=== PATIENT | female | born 1980 | race Caucasian/White ===

== ENCOUNTER 2024-02-19 09:18 | Day surgery (SDC) | payer BC, SELFPAY ==
--- NOTE | 2024-02-17 12:48 | PCM.HP.BLA ---
History and Physical Date of Admission: 02/19/24 HPI: The patient is a 43 year old female presenting for pre-operative visit. She is scheduled for hysteroscopy dilation and curettage, for hysteroscopy dilation and curettage with polyp resection on AUB and endometrial polyps. Procedure discussed along with risks, benefits and complications. Other alternatives discussed for management. Consent form signed? Yes. PAST MEDICAL HISTORYExpand by Default PAST MEDICAL HISTORY No date: NEGATIVE MEDICAL HISTORY PAST SURGICAL HISTORY PAST SURGICAL HISTORY No date: NONE CURRENT MEDICATIONS Current Outpatient Medications Medication Sig Dispense Refill ? multivit-minerals/folic acid (WOMEN'S MULTIVITAMIN GUMMIES ORAL) Take by mouth. No current facility-administered medications for this visit. ALLERGIES: Bee Pollen PERSONAL HISTORY: SOCIAL HISTORY Social History Tobacco Use ? Smoking status: Former ? Smokeless tobacco: Never ? Tobacco comments: Quit 2005 Vaping Use ? Vaping status: Never Used Substance Use Topics ? Alcohol use: Not Currently ? Drug use: Never FAMILY HISTORY: FAMILY HISTORY FAMILY HISTORY Problem Relation Age of Onset ? Diabetes Mother ? Cancer Father Skin ? Heart Father Low pulse ? Hypertension Father ? Parkinson?s Disease Father ? other (covid pneumonia) Father ? Diabetes Maternal Grandmother ? Cancer Maternal Grandfather Leukemia ? Alzheimer's Disease Paternal Grandmother ? Alzheimer's Disease Paternal Grandfather REVIEW OF SYMPTOMS: GENERAL: denies fevers or chills ENDOCRINOLOGY: has not been on steroids Cardiology : denies palpitations or chest pain Respiratory: denies SOB or cough Hematology: denies history of prolonged bleeding or easy bruising or VTE Allergy: Denies history of personal or family history of allergy to anesthesia PHYSICAL EXAMINATION: VITALS: Blood pressure 132/88, pulse 71, height 160 cm (5' 3), weight 89.8 kg (198 lb), last menstrual period 01/23/2024, SpO2 99%. GENERAL: The patient is well nourished, well hydrated in no acute distress. , The patient is oriented to time, place, and person. NECK: Supple. No lynphadenopathy, normal thyroid, no thyromegaly. LUNGS: Clear to auscultation bilaterally. no wheezes, rhonchi or rales HEART: Regular rate and rhythm, Normal heart sounds, and No murmurs or gallops pelvic US 01/16/24: Indication Pelvic Pain Impression Anteverted fibroid uterus that measures 98 mm x 54 mm x 56 mm. The largest fibroids are described below. Endometrium measures 13.2 mm on Day 21 of cycle. There is a 12 x 3 x 7 mm hyperechoic area within fundal area which is suggestive of a polyp. Normal endometrial contour. Both ovaries are visualized and appear normal with follicular change. No adnexal masses were observed. There is no free fluid visualized in the peritoneal cavity. IMPRESSION: AUB, endometrial polyps PLAN: The risks/benefits/alternatives and personal involved for the planned hysteroscopy D&C w/ polyp resection were reviewed with the patient. Her questions were answered to her satisfaction and she desires to proceed. Consent was signed. I reviewed with her postop instructions and expectations. I have reviewed and updated past medical and surgical history, medications and allergies Assessment & Plan Assessment/Plan (1) Abnormal uterine bleeding (AUB): (2) Endometrial polyp:
[2024-02-19] VITALS (8 sets, daily range): BP systolic 111–149; BP diastolic 59–85; PULSE 90–99; RESP 16; TEMP 36.2–37.4; O2SAT 98–100; BMI 34.0
[2024-02-19] MEDS: Lactated Ringers 1,000 ML 15 ML IV (10:17)
[2024-02-19] MEDS: Acetaminophen 500 MG Tablet 1000 MG PO (10:22)
[2024-02-19] MEDS: Ketorolac 30 MG/ML Syringe IV (10:22)
[2024-02-19 10:41] LABS: hCG Titer Quant., Serum < 1 mIU/mL (1-3)
[2024-02-19 10:51] LABS: Hematocrit 41.4 % (37-47); Mean Corp Hgb Conc 31.4 g/dL (32-36); Mean Corpuscular Hgb 27.1 pg (27.0-32.0); Mean Corpuscular Volume 86.4 fL (81-99); Mean Platelet Vol. 10.7 fl (6.2-12.0); Platelet Count 200 K/mm3 (150-450); RBC Distribution Width CV 12.8 % (11.6-14.6); Red Blood Count 4.79 M/mm3 (4.2-5.4); White Blood Count 7.5 K/mm3 (4.4-11.0)
--- NOTE | 2024-02-19 10:58 | PCM.PRE.AN2 ---
ASA Classification* ASA Classification ASA Classification: 1 and 2 Assessment & Plan Anesthesia* Anesthesia Assessment Anesthesia Assessment: Discussed sedation and/or anesthesia options, risks, benefits, and alternatives with patient/parents/legal guardian/POA. Questions invited. The patient/parents/legal guardian/POA seems to understand and agrees to proceed with anesthesia plan. Reviewed the physical assessment, medical history, allergy history and patient home medications list prior to surgery/procedure/anesthetic and documented any changes. Performed airway and anesthesia risk assessments. Anesthesia Type Anesthesia Type: MAC History Source History Obtained from:: Patient and Chart Anesthesia Focused Assessment* Temperature: 99.3 F Pulse Rate: 91 Blood Pressure: 149/85 Respiratory Rate: 16 Pulse Ox: 100 Oxygen Delivery Method: Room Air Airway Assessment Mouth opens: >3 cm Mallampati Score: III Teeth Condition: Chipped/Broken (Patient has some chipped teeth. None of her teeth are loose.) Neck Range of motion (ROM): Full ROM Focused Labs Anesthesia Preop lab: CBC WBC 7.5 K/mm3 (4.4-11.0) 02/19/24 10:35 RBC 4.79 M/mm3 (4.2-5.4) 02/19/24 10:35 Hgb 13.0 g/dL (12.0-15.0) 02/19/24 10:35 Hct 41.4 % (37-47) 02/19/24 10:35 Plt Count 200 K/mm3 (150-450) 02/19/24 10:35 CHEMISTRY Potassium 3.6 mmol/L (3.5-5.1) 11/10/16 21:15 Sodium 139 mmol/L (136-145) 11/10/16 21:15 BUN 19 mg/dL (7-18) H 11/10/16 21:15 Creatinine 0.77 mg/dL (0.55-1.02) 11/10/16 21:15 Glucose 95 mg/dL (70-110) 11/10/16 21:15 COAG HCG, Quant < 1 mIU/mL (1-3) 02/19/24 10:09 Pre-Assessment Diagnosis/Proposed Procedure Planned Operative Procedure(s): HYSTEROSCOPY WITH POLPECTOMY SMYPHION Anesthesia History Anesthesia History - probate paralegal: Anesthesia History - probate paralegal Hx Hospitalization No 02/10/24 08:12 Any Problems With Anesthesia No 02/10/24 08:12 Cholinesterase deficiency No 02/10/24 08:12 You/Your Family Experience No 02/10/24 08:12 fever (hyperthermia) with Relationship Recent Exposure to Contagious No 02/19/24 09:54 Disease Does patient have nerve No 02/10/24 08:12 stimulator Patient instructed to have device shut off --Does patient have Pacemaker No 02/19/24 09:54 or ICD? When Was Last Pacemaker Check QUESTION #4 FULL TEXT: You/Your Family Experience fever (hyperthermia) with Anesthesia Last Oral Intake Last Oral intake: Last Oral Intake NPO since 22:00 02/19/24 09:54 Meds taken in AM with sips of No 02/19/24 09:54 water? Meds patient instructed to take am of surgery PONV PONV - probate paralegal: PONV - probate paralegal Female Yes 02/10/24 08:12 HX of Motion Sickness No 02/10/24 08:12 HX of N/V After Surgery No 02/10/24 08:12 Non-Smoker Yes 02/10/24 08:12 Duration of Surgery greater No 02/10/24 08:12 than 60 minutes Number of Risk Factors 2 02/10/24 08:12 PONV Score Moderate Risk 02/10/24 08:12 Height & Weight Height & Weight: Anesthesia: Height & Weight Height 5 ft 4 in 02/19/24 09:54 Weight: 90 kg 02/19/24 09:54 Body Mass Index (BMI) 34.0 02/19/24 09:54 Respiratory Assessment Respiratory Assessment - probate paralegal: Respiratory Tract Infection Hx - probate paralegal Hx Respiratory Tract Infection No 02/10/24 08:12 STOP Sleep Apnea STOP Sleep Apnea - probate paralegal: STOP Sleep Apnea - probate paralegal Hx Hypertension No 02/10/24 08:12 Hx Sleep Apnea No 02/10/24 08:12 CPAP BIPAP Do you snore loudly (louder No 02/10/24 08:12 than talking or can be heard Do you often feel tired/ No 02/10/24 08:12 fatigued/ sleepy during daytime? Has anyone observed you stop No 02/10/24 08:12 breathing during sleep? STOP Results Negative 02/10/24 08:12 QUESTION #5 FULL TEXT : Do you snore loudly (louder than talking or can be heard through closed doors)? 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 Specify any problems Hx of Preganancy in last 3 No 02/10/24 08:12 Months Nurse Filling Out Transfusion [email or web address] 02/10/24 08:12 & Questions: Date: 02/10/24 02/10/24 08:12 Time: 08:18 02/10/24 08:12 Patient unable to answer at this time (ie. confused, unrespo /Reproduction History /Reproductive History - probate paralegal: /Reproductive Hx- probate paralegal Hx Now No 02/10/24 08:12 Gestational Age (in weeks): EDC: Hx Hx Para Hx Section SAB No 02/10/24 08:12 Active Medications Active Medications: Current Medications Generic Name Dose Route Start Last Admin Trade Name Freq PRN Reason Stop Dose Admin Lactated Ringer's 1,000 mls @ 15 mls/hr 02/19/24 10:30 02/19/24 10:17 IV 15 mls/hr .Q48H ASIM Administration PFSH Medical History Wears glasses Former smoker Home Medications ?Medication ?Instructions ?Recorded ?Last Taken ?Type multivitamin (Daily Multi-Vitamin 1 tab PO DAILY 02/10/24 Unknown History tablet) Allergy/AdvReac Type Severity Reaction Status Date / Time bee venom protein (honey bee) Allergy Hives Verified 02/10/24 08:11 Surgical History (Updated 02/10/24 @ 08:20 by Dmitriy Meier) H/O wisdom tooth extraction Social History Smoking Status: Former smoker Review of Systems (Anesthesia) ROS Narrative System reviewed and no additional complaints, except as documented.
--- NOTE | 2024-02-19 11:10 | EMB_PTH ---
PATIENT: MELANIE CONN LOC: [facility] U#:[id number] AGE/SX: 43/F ROOM: RE02/19/[address]: Dr. Hallie Moses MD : 1980 BED: DIS: 02/19/2024 SPEC #: [id number] RECD: 02/19/24 17:48 STATUS: CINDY LUCAS #: [id number] ANN: 02/19/24 11:[address]: Hallie Moses DEPT: SURGICAL PATHOLOGY RECD BY: Hilary Hernandez ENTERED: 02/20/24 07:35 SP TYPE: ENDOM BX/C OTHR DR: Dr. Alex Zuleta MD Tissues: Endometrium, NOS Procedures: Surgery Specimen Level IV HEADER OPERATION: Hysteroscopy polypectomy, D&C PRE-OP DIAGNOSIS: Endometrial poly, abnormal uterine bleeding TISSUE SUBMITTED: Endometrial curettings and polyp MICROSCOPIC DIAGNOSIS Endometrial curettings and polyp, polypectomy and dilation and curettage: Simple endometrial hyperplasia without atypia with superimposed secretory changes. See comment. 02/23/2024 COMMENT A few fragments of polypoid tissue consist with endometrial polyp are also noted. Case has been reviewed in consultation with Dr. Martínez who concurs with the above diagnosis. IDC:AM MICROSCOPIC DESCRIPTION Slides are reviewed. GROSS DESCRIPTION Received in fixative is one container labeled with the patient's name and designated Endometrial curettings and polyp. The specimen consists of javed pink soft tissue measuring in aggregate 5.0 x 3.0 x 0.2cm. A javed-pink polyp is also noted measuring 0.5 x 0.5 x 0.3cm. The entire specimen is submitted in two cassettes. 02/20/2024 TC:5 CPT:32789
--- NOTE | 2024-02-19 11:14 | DCINST_ITS ---
Discharge Instructions Diet Discharge Diet: No restrictions Activity Return to work on:: 02/24/24 May shower in (days): 1 May resume sexual activity in: 2 weeks Lifting Restrictions: none Dressing / Incision Call your doctor if your incision/area has: Sudden Increased Bleeding and Foul Smelling Discharge Call your doctor if you observe: Fever of 101 or Higher and Using more than 1 pad per hour (for 2 hrs in a row) Follow Up Care Please Follow Up With: Hallie Moses MD When: You do not need a postop appointment. Dr. Moses's office will contact you with your pathology. Call [phone] or send a [employer] message with any questions. Test Results: Test results from this visit will be discussed in further detail at your follow- up appointment, if applicable. Discharge Plan Admission Attending Provider: Hallie Moses Primary Care Provider: Alex Zuleta Instructions Print Language: Urdu Discharge Orders/Prescriptions Prescriptions: No Action multivitamin [Daily Multi-Vitamin] Tablet 1 tab PO DAILY Referrals / Follow Up: Alex Zuleta MD [Primary Care Provider] - Disposition Disposition (needs filled in before D/C Order can be placed): Home, Self Care
--- NOTE | 2024-02-19 11:15 | PCM.OPRPT ---
Problems Associated Problem List Diagnoses (1) Endometrial polyp: (2) Abnormal uterine bleeding (AUB): Report of Operation Date of Procedure: 02/19/24 Pre-Operative Diagnosis: Abnormal uterine bleeding and endometrial polyp Post-Operative Diagnosis: same Surgery/Procedure Performed:: Hysteroscopy D&C with polyp resection Description of Surgical Findings:: Lush endometrium with polypoid appearing lesions in the right upper cornual area and left anterior fundal area. Normal cervix and vagina. Surgeon: Hallie Moses bed and breakfast operator: Ralf Harrington Type of Anesthesia: MAC/Supplemental/Local Anesthesiologist: Santino Martin Special Medications: none Specimen's removed: Endometrial curettings and polyp Drains: none Estimated Blood Loss (mL): 10 Fluids Replaced: 800 Description of Procedure: The patient was taken to the OR where she was prepped and draped in dorsal lithotomy position. The weighted speculum was placed in the vagina and the anterior lip of the cervix was grasped with a single-tooth tenaculum. A paracervical block was administered with1% Xylocaine with dilute epinephrine solution.. The cervix was dilated serially with Hegar dilators. The Symphion] hysteroscope was placed into the uterine cavity and the above findings were noted. Bilateral tubal ostia were identified. The symphion resection device was used to resect the endometrium and the polyps. No other focal abnormalities were noted. The instruments were removed from the vagina. The specimen was handed off and sent to pathology. All sponge and needle counts were correct. Vaginal sweep was performed by me. The patient was awakened and taken to the recovery room in stable condition. Calculated hysteroscopic fluid deficit of 650 cc of normal saline. Grafts/Implants Used: none Procedure Start Time: 11:24 Procedure Stop Time: 11:37 Complications none Admit VTE Documentation VTE Present on Admission: No VTE Mechan Device Prophylaxis: SCD's
[2024-02-19] MEDS: Lidocaine 1% /Epi 1:100 (20ml) 20 ML Vial (11:25)
--- NOTE | 2024-02-19 12:29 | PCM.POST.ANE ---
Anesthesia: Postop Eval I Current Vital Signs Temperature: 97.2 F Pulse Rate: 90 Blood Pressure: 131/78 Respiratory Rate: 16 Pulse Ox: 100 Oxygen Delivery Method: Room Air Assessment Airway patent: Yes Spontaneous unlabored respirations: Yes Mental status: Awake and Calm nausea: No Vomiting: No Anesthesia Complication: No Fluid Hydration Crystalloid volume administer (ml): 1,000 Total IV fluid infused: 1,000 Progress Note Anesthesia document: Postop Eval 1 completed: Yes
== END 2024-02-19 12:36 | disposition home or self-care (01) ==
LOC: SDC 09:19 → AC 09:20
PROVIDERS: PCP Family Medicine; Referring Provider Obstetrics & Gynecology; Visit Provider Obstetrics & Gynecology
PROC: 0UB98ZZ Excision of Uterus, Via Natural or Artificial Opening Endoscopic (ICD-10-PCS; CPT 58558; principal; 2024-02-19 10:55)
DX: N93.9 Abnormal uterine and vaginal bleeding, unspecified (principal); N85.01 Benign endometrial hyperplasia; Z87.891 Personal history of nicotine dependence
CPT/HCPCS: 58558; 00952; 84702; 85027; 88305; J7120; J2405